=== PATIENT | female | born 1975 | race Caucasian/White ===

== ENCOUNTER 2016-08-12 07:25 | Emergency (ER) | payer MEDICARE, OTHER ==
[~2016-08-12 07:25] MED LIST: APRISO0.375 GM PO; AUG875 PO; BACDS PO; BENTYL10 PO; BENTYL20 PO; CEFT2 PO; COLESTIPOL 1 GM PO; COLESTIPOL1 GM OR; CORTENEMA RE; DEXILANT PO; DIL4TAB PO; EFFEX75 PO; ENTOCORT3 PO; FLORASTOR250 MG PO; FLUCON150 PO; HORMONE PELLET SC; HYDROCHLOROT12.5 MG PO; HYDROCORTISONE SUPP RC; IMU PO; KDUR10 PO; KLONO1 PO; KLONO5 PO; LISINOPRIL40 MG PO; LOM PO; LORTAB10 PO; MAGIC MOUTH; MAGIC MOUTHWASH PO; NEUR300 PO; NEUR600 PO; NORCO1 TAB PO; OXYCOD PO; P10; P10 PO; PCET PO; PENTASA500 MG PO; PERCOCET1 TA4 PO; PR25 PO; PRILOSEC40 MG PO; PRIN10 PO; PRIN20 PO; RANITIDINE300 MG PO; REMICADE IV; TOPAMAX25 PO; TUMSROLL PO; VALTREX1 GM PO; ZANTAC300 MG PO; ZESTRIL10 MG PO; ZESTRIL20 MG PO; ZOFRAN4 PO; [UNRECOGNIZED DRUG - OTHER] PO; [UNRECOGNIZED DRUG - OTHER] T
[2016-08-12 08:37] LABS: BASOPHILS 0.2 %; BASOPHILS ABSOLUTE 0.03 10/3/uL (0.0-0.16); EOSINOPHILS 0.6 %; EOSINOPHILS ABSOLUTE 0.09 10/3/uL (0.0-0.53); HEMOGLOBIN 14.6 g/dL (12.0-16.0); IMMATURE GRANULOCYTES 0.3 %; IMMATURE GRANULOCYTES ABSOLUTE 0.04 10/3/uL (0.0-0.11); LYMPHOCYTES 16.1 %; LYMPHOCYTES ABSOLUTE 2.37 10/3/uL (0.67-4.30); MEAN CORPUS HGB CONC 33.3 g/dL (32.0-36.0); MEAN CORPUSCULAR HEMOGLOB 29.4 pg (26.0-34.0); MEAN CORPUSCULAR VOLUME 88.3 fL (80-100); MEAN PLATELET VOLUME 8.8 fL (9.2-13.0); MONOCYTES 4.7 %; NEUTROPHILS 78.1 %; NEUTROPHILS ABSOLUTE 11.52 10/3/uL (2.02-8.40); PLATELET COUNT 258 10/3/uL (150-400); RBC DISTRIBUTION WIDTH 14.3 % (12.0-16.0); RED CELL COUNT 4.96 10/6/uL (4.0-5.6)
[2016-08-12 08:42] LABS: ER CBC TAT 0 Hrs 10 Mins; HEMATOCRIT 43.8 % (36.0-48.0); MANUAL DIFF NO %; WHITE BLOOD CELLS 14.8 10/3/uL (4.5-10.5)
[2016-08-12 08:46] LABS: WBC (NOT ORDERED) (RFLEX) 0 (0-5)
[2016-08-12 08:52] LABS: A/G RATIO 0.7 (0.7-1.9); ALBUMIN 3.1 G/DL (3.5-5.0); ALKALINE PHOSPHATASE 129 U/L (45-117); BUN (BLOOD UREA NITROGEN) 6 MG/DL (6-23); CALCIUM, SERUM 8.5 MG/DL (8.5-10.4); CHLORIDE, SERUM 111 MMOL/L (96-112); CO2 (CARBON DIOXIDE) 25 MMOL/L (24-34); CREATININE 0.85 MG/DL (0.55-1.02); GFR AFRICAN AMERICAN 99 ML/MIN (>=60); GFR NON AFRICAN AMERICAN 86 ML/MIN (>=60); GLOBULIN 4.2 G/DL (2.5-4.1); GLUCOSE, SERUM 109 MG/DL (60-99); POTASSIUM, SERUM 3.7 MMOL/L (3.5-5.3); SGOT(AST) 7 U/L (5-40); SGPT(ALT) 14 U/L (5-65); SODIUM, SERUM 143 MMOL/L (135-148); TOTAL BILIRUBIN 0.5 MG/DL (0-1.2); TOTAL PROTEIN 7.3 G/DL (6.0-8.5)
[2016-08-12 09:05] LABS: C-REACTIVE PROTEIN 61.9 MG/L (<8.0)
[2016-08-12 09:23] LABS: ASCORBIC ACID (UR NOT ORDER) NEG (NEG); BILIRUBIN, URINE NEGATIVE (NEG); KETONE, URINE NEGATIVE (NEG); LEUKOCYTE ESTERASE(NOT OR NEG (NEG)
[2016-08-12 09:24] LABS: ER URINALYSIS TAT 0 Hrs 38 Mins; NITRITE (URINE) NEG (NEG)
[2016-08-12 09:41] LABS: LACTATE 1.3 MMOL/L (0.3-2.4)
== END 2016-08-12 11:06 | disposition home or self-care (01) ==
LOC: ER 07:25
PROVIDERS: Nurse Practitioner Family
DX: R10.11 Right upper quadrant pain (principal); D72.829 Elevated white blood cell count, unspecified; I10 Essential (primary) hypertension; F41.9 Anxiety disorder, unspecified; F32.9 Major depressive disorder, single episode, unspecified; F17.200 Nicotine dependence, unspecified, uncomplicated; Z87.442 Personal history of urinary calculi; Z90.710 Acquired absence of both cervix and uterus; Z88.5 Allergy status to narcotic agent; Z88.1 Allergy status to other antibiotic agents; Z91.09 Other allergy status, other than to drugs and biological substances; Z79.899 Other long term (current) drug therapy
CPT/HCPCS: 74176; 80053; 81001; 83605; 83690; 84703; 85025; 85652; 86140; 87493; 87493-59; 96374; 96375; 99284; A9270-GY; J1170; J1885; J2405